=== PATIENT | female | born 1940 | race Caucasian/White ===

== ENCOUNTER → 2017-03-02 | Outpatient (CLI) | payer MEDICARE ==
--- NOTE | 2017-03-03 14:26 | PE ---
EXAMINATION TYPE: PET CT fusion skull to thigh DATE OF EXAM: 03/02/2017 CLINICAL HISTORY: 76 year-old female multiple lung nodules, solitary pulmonary nodule, initial stagin g TECHNIQUE: Following the intravenous administration of 15.27 mCi of F-18 FDG, whole body images are performed from the skull base to the midthigh. Images are reviewed on the computer in the coronal, axial, and sagittal planes. Reconstructed rotating images are created on independent workstation and reviewed on the computer. A localization and attenuation correction CT is performed in conjunction with the PET scan. Glucose level: 162 mg/dL CTDI: 4.72 mGy DLP: 364.65 mGy-cm COMPARISON: PET CT 02/18/[address] 07/17/2013 FINDINGS: PET: Couple tiny nonenlarged, 4 mm lymph nodes just deep to the right parotid tail, axial image 23. This s hows mild increased FDG uptake similar to 02/18/2016. Maximal SUV 2.6 versus 2.5, previously. There is a nonspecific 9 mm groundglass nodule that shows trace FDG uptake in the right upper lobe, a xial image 59, max SUV 1.1 which is new from 2016. A couple new areas of tree-in-bud opacity in the peripheral right upper lobe, axial image 62 and 65 s how no significant FDG uptake and are most compatible with an inflammatory etiology. 9 mm groundglass nodule superior segment right lower lobe was present in 2016 but is new from 2013. T his shows no significant hypermetabolism. The irregular focal opacity in the right middle lobe now measures 2.6 x 1.3 cm versus 1.7 x 1.1 cm in 2016 and 1.6 x 0.7 cm in 2013. Maximal SUV 2.2 versus 2.5, previously. Otherwise, physiologic FDG uptake within the abdomen and pelvis. ATTENUATION CORRECTION CT: Paranasal sinuses and mastoid air cells are clear. Prominent atherosclerotic calcifications at the ca rotid bifurcations. No cervical lymphadenopathy by size criteria. Heart is upper limits of normal in size without pericardial effusion. Coronary vessel calcifications are present and are a marker for coronary artery disease. Aorta is normal caliber with moderate at t he aortic arch calcifications and conventional arch vessel branching anatomy. A few nonenlarged medi astinal lymph nodes are present. No thoracic lymphadenopathy by CT size criteria. Stranding areas of atelectasis/scarring are present in the lungs. Mild centrilobular emphysema. Gallbladder hydropic measuring 4.9 cm wide. No surrounding inflammatory change. Findings likely relat ing to fasting state. Moderate atherosclerotic calcifications within the abdominal aorta and iliac ar teries. No aneurysm. No mesenteric or retroperitoneal lymphadenopathy. No dilated small bowel, free f luid, or free air. Scattered hhgp-ty-kzarsmaf stool. There is sigmoid diverticulosis without evidence for acute diverticulitis. There is a small bowel containing moderate-sized umbilical hernia. Small bowel extends to closely octavio ose the skin surface. No obstructive changes. Artifact from the patient's right hip replacement limits visualization of the pelvis. Bladder is urin e distended. Uterus is present. Both ovaries are visualized. Bones: Degenerative changes at the left hip. Right hip total arthroplasty. Degenerative changes lower lumbar spine. Endplate spondylosis mid to lower thoracic spine. Cervical spondylosis. End-stage deg enerative change of the right shoulder and mild to moderate at the left shoulder. IMPRESSION: 1. The irregular right middle lobe focal opacity in question shows very gradual enlargement from 2014 . It currently measures 2.6 x 1.3 cm versus 1.6 x 0.7 cm back in 2014. There is similar associated mi ld uptake (max SUV 2.2) as compared to the 2016 PET. Given the gradual enlargement, annual surveillan ce is recommended. Findings may represent an area of adenomatous hyperplasia which can serve as a pre cursor to lung cancer. Indolent neoplasm such as low-grade adenocarcinoma is a less likely possibilit y at this time. 2. Two additional 9 mm groundglass nodules on the right should also be reassessed at follow-up. One i s new from 2016 but both are new from 2014. 3. A small 4 mm right parotid space lymph node has mild uptake and is unchanged from 2016, likely chr onic postinflammatory etiology. 4. Incidental: COPD with mild emphysema, sigmoid diverticulosis, and a small to moderate sized umbili lokesh hernia containing a small bowel loop which extends nearly to the skin surface.
== END | disposition home or self-care (01) ==
LOC: RADPETMAIN 11:20
PROVIDERS: ATTEND Internal Medicine Sleep Medicine
DX: J43.9 Emphysema, unspecified (principal); R91.8 Other nonspecific abnormal finding of lung field
CPT/HCPCS: 78815; A9552

== ENCOUNTER → 2019-04-22 | Outpatient (CLI) | payer MEDICARE ==
--- NOTE | 2019-04-22 15:31 | CT ---
EXAMINATION TYPE: CT chest abdomen wo con DATE OF EXAM: 04/22/2019 COMPARISON: Outside chest CT February 11, 2018. Most recent PET/CT March 02, 2017 HISTORY: History of lung ca. Prior in pacs. Scanned by MA and [facility] CT DLP: 945.90 mGycm. Automated Exposure Control for Dose Reduction was Utilized. TECHNIQUE: CT scan of the thorax and abdomen is performed without oral or IV contrast. FINDINGS: LUNGS: Background moderate underlying emphysematous change redemonstrated. There is bibasilar atelect asis and/or consolidation. There is more suspicious right midlung spiculated area or mass measuring 3 .0 x 3.0 cm-image 28. There is additional areas of suspicious spiculated consolidation and probable n odularity lateral right upper lobe near axial image 14, focal nodule measuring 1.1 x 0.8 cm axial nash ge 13 is noted. MEDIASTINUM: There are no definitive greater than 1 cm hilar or mediastinal lymph nodes. Lack of IV c ontrast is noted to lowers sensitivity particularly for hilar adenopathy. No pericardial effusion i s seen. Cardiomegaly with fairly severe three-vessel coronary artery calcification and/or stents is redemonstrated. OTHER: Exaggerated thoracic kyphosis. LIVER/GB: No significant abnormality is appreciated. PANCREAS: No significant abnormality is seen. SPLEEN: No significant abnormality is seen. ADRENALS: No significant abnormality is seen. KIDNEYS: No significant abnormality is seen. BOWEL: Diverticula visualized portion of left and sigmoid colon. Occasional diverticula in the transv erse colon. No CT evidence for acute diverticulitis LYMPH NODES: No greater than 1cm abdominal lymph nodes are appreciated. OSSEOUS STRUCTURES: No significant abnormality is seen. OTHER: Emltggls-ll-bgphir calcified plaque of the aorta extends into the iliac branch vessels. IMPRESSION: Neoplastic progression thought present from prior comparison studies with multifocal righ t lung involvement favored. No new abdominal metastatic disease. Outside reports are not available f or direct comparison.
== END | disposition home or self-care (01) ==
LOC: RADCTMAIN 13:00
PROVIDERS: ATTEND Radiology Radiation Oncology
DX: C34.11 Malignant neoplasm of upper lobe, right bronchus or lung (principal)
CPT/HCPCS: 71250; 74150

== ENCOUNTER → 2019-09-28 | Outpatient (CLI) | payer MEDICARE ==
[2019-09-28 14:38] LABS: African American GFR (CKD) >90 (>60 ml/min/1.73 sqM); Blood Urea Nitrogen 11 mg/dL (7-17); Non-African American GFR(CKD) >90 (>60 ml/min/1.73 sqM)
--- NOTE | 2019-09-28 15:39 | CT ---
EXAMINATION TYPE: CT chest w con DATE OF EXAM: 09/28/2019 COMPARISON: CT chest April 22, 2019. Outside CT February 11, 2018. Prior PET/CT March 02, 2017 an d older study February 18, 2016. HISTORY: Follow up lung cancer. CT DLP: 425 mGycm. Automated Exposure Control for Dose Reduction was Utilized. TECHNIQUE: CT scan of the thorax is performed following with IV Contrast, patient injected with 100 mL of Isovue 300. FINDINGS: LUNGS: Background moderate emphysematous change redemonstrated. Right infrahilar mass or neoplasm pedro ws interval progression now measuring 6.7 x 4.0 cm axial image 29. There are new and Enlarging bilate ral pulmonary nodules and masses consistent with metastatic disease progression, for reference is 2.1 x 1.9 cm left upper lobe new nodule axial image 20. No pleural effusion or pneumothorax seen bilater ally. Yiae-kz-jxxbwmae posterior bibasilar atelectasis and/or scarring remains present. MEDIASTINUM: There are prominent but subcentimeter AP window along with paracarinal and right hilar l ymph nodes. Coronary artery calcification is present which is noted marked underlying coronary artery disease. Cardiomegaly is redemonstrated.. No pericardial effusion is seen. OTHER: Exaggerated thoracic kyphosis. Uomscnnz-yv-voitsv multilevel spurring in the spine. Moderate t o severe disc space narrowing T10-T11 level. IMPRESSION: Significant neoplastic progression with new and enlarging bilateral pulmonary nodules and masses identified
== END | disposition home or self-care (01) ==
LOC: RADCTMAIN 13:58
PROVIDERS: ATTEND Radiology Radiation Oncology
DX: C34.11 Malignant neoplasm of upper lobe, right bronchus or lung (principal); Z92.3 Personal history of irradiation
CPT/HCPCS: 82565; 84520; 71260; 36415; Q9967

== ENCOUNTER 2019-11-06 08:51 | Day surgery (SDC) | payer MEDICARE ==
[2019-11-06 09:22] VITALS: RESP 16; TEMP 98.1
[2019-11-06] MEDS ORDERED: ALPRAZolam 0.25 MG TAB PO STA (09:30)
[2019-11-06 09:58] LABS: Mean Platelet Volume 6.9; Platelet Count 495 k/uL (150-450)
[2019-11-06 10:05] LABS: Prothrombin Time 10.7 sec (9.0-12.0)
[2019-11-06] MEDS ORDERED: HYDROcodone/APAP 5-325MG 1 EACH TAB PO PRN (11:44)
--- NOTE | 2019-11-06 11:44 | P.OP ---
Date of Procedure: 11/06/19 Preoperative Diagnosis: left apical chest wall mass, lung metastases Postoperative Diagnosis: same Procedure(s) Performed: CT-guided core biopsy of left apical chest wall mass Anesthesia: local Surgeon: Lidia Baird Estimated Blood Loss (ml): 1 Pathology: other (5 18G core biopsy specimens sent to pathology) Condition: stable Disposition: observation
[2019-11-06 12:21] VITALS: PULSE 65
[2019-11-06 13:15] VITALS: BP 132/78
--- NOTE | 2019-11-06 17:07 | CT ---
EXAMINATION TYPE: CT biopsy subcut tissue DATE OF EXAM: 11/06/2019 HISTORY: Left rib mass. History of lung cancer. COMPARISON: CT chest 09/28/2019. BRAZER INDUCTION: Dr. Lidia Baird. Informed consent was obtained by Dr. Lidia Baird prior to procedure. Preliminary CT imaging demonstrated a 5.6 x 3.7 cm soft tissue mass destroying the left first rib, as well as numerous redemonstrated pulmonary nodules/masses. The skin overlying a suitable path to the left apical chest wall lesion was localized using CT and the overlying skin was prepped and draped ut ilizing maximal barrier technique. Lidocaine used for local anesthesia. A small skin zaki was made wi th a scalpel. Using CT guidance, access was gained to the lesion with a 18-gauge coaxial core biopsy needle. Core specimen(s) submitted in formalin for histopathology. 5 pass(es) performed in all. All n eedles were removed and sterile bandage was applied. Postprocedure CT imaging demonstrated no evidence of significant hemorrhage or pneumothorax. Patient tolerated procedure well with no immediate complications. Patient is discharged in stable condition. IMPRESSION: Successful CT-guided 18G core biopsy of left apical chest wall mass. Pathology pending.
== END 2019-11-06 13:17 | disposition home or self-care (01) ==
LOC: RADPROMAIN 08:51
PROVIDERS: ATTEND Internal Medicine Hematology & Oncology
DX: C41.3 Malignant neoplasm of ribs, sternum and clavicle (principal); R22.2 Localized swelling, mass and lump, trunk; Z88.6 Allergy status to analgesic agent; Z88.1 Allergy status to other antibiotic agents; Z85.118 Personal history of other malignant neoplasm of bronchus and lung
CPT/HCPCS: 21550; 36415; 77012; 81445; 82947; 85049; 85610; 88305; 88341; 88342; 88360; 88381

== ENCOUNTER 2020-02-21 04:14 | Inpatient (IN) | payer MEDICARE ==
--- NOTE | 2020-02-21 04:53 | ED ---
SOB HPI - General Chief Complaint: Shortness of Breath Stated Complaint: SOB, Weakness Time Seen by Provider: 02/21/20 04:47 Source: EMS Mode of arrival: EMS Limitations: no limitations - History of Present Illness Initial Comments: Tia is an 79-year-old female with stents of medical history most significant for COPD on oxygen 3 L at baseline. Patient presents to the ER today via ambulance for evaluation of shortness breath, fevers, chills, body aches and nausea. Patient reports her sister had COVID that she was exposed. She states she's been feeling sick for 2-3 days was trying to treat herself at home with breathing treatments and increasing or supplemental oxygen but this morning felt like she couldn't catch her breath and was feeling much worse which prompted her come in. Patient denies any chest pain. - Related Data Home Medications Medication Instructions Recorded Confirmed Ascorbic Acid [Vitamin C] 500 mg PO DAILY 02/27/16 11/06/19 Fluticasone/Vilanterol [Breo 1 each IH DAILY 02/27/16 11/06/19 Ellipta 200-25 Mcg INH] Hydrocodone/Acetaminophen [[place] 1 tab PO Q6HR PRN 02/27/16 11/06/19 7.5-325] Ipratropium-Albuterol Nebulize 1 applicate INHALATION QID 02/27/16 11/06/19 [Duoneb 0.5 mg-3 mg/3 ml Soln] Ipratropium/Albuterol Sulfate 2 puff INHALATION BID 02/27/16 11/06/19 [Combivent Respimat Inhaler] Lutein 20 mg PO DAILY 02/27/16 11/06/19 Metoprolol Succinate [Toprol XL] 50 mg PO DAILY 02/27/16 11/06/19 Propafenone [Rythmol] 150 mg PO BID 02/27/16 11/06/19 Repaglinide [Prandin] 1 mg PO 1200,1700 02/27/16 11/06/19 Rivaroxaban [Xarelto] 20 mg PO W/SUPPER 02/27/16 11/06/19 Rosuvastatin Calcium [Crestor] 1.25 mg PO DAILY 02/27/16 11/06/19 Travoprost [Travatan Z 0.004%] 1 drop BOTH EYES HS 02/27/16 11/06/19 dilTIAZem HCL [Diltiazem HCl] 60 mg PO TID 02/27/16 11/06/19 hydrALAZINE HCL 25 mg PO DAILY 02/27/16 11/06/19 Allergies Allergy/AdvReac Type Severity Reaction Status Date / Time cephalexin [From Keflex] Allergy Rash/Hives,itching,rapid Verified 02/21/20 04:22 heartbeat levofloxacin [From Levaquin] Allergy Rash/Hives,itching,rapid Verified 02/21/20 04:22 heartbeat moxifloxacin [From Avelox] Allergy Rash/Hives,itching,rapid Verified 02/21/20 04:22 heartbeat naproxen [From Aleve] Allergy Rash/Hives,itching,rapid Verified 02/21/20 04:22 heartbeat Review of Systems ROS Statement: Those systems with pertinent positive or pertinent negative responses have been documented in the HPI. ROS Other: All systems not noted in ROS Statement are negative. Past Medical History Past Medical History: Atrial Fibrillation, Cancer, COPD, Diabetes Mellitus, Eye Disorder, Hyperlipidemia, Hypertension, Rheumatoid Arthritis (RA), Skin Disorder Additional Past Medical History / Comment(s): psoriasis, investigating lung cancer bone lesion October 2019 History of Any Multi-Drug Resistant Organisms: None Reported Past Surgical History: Joint Replacement Additional Past Surgical History / Comment(s): bilc cataracts, rt hip replacement, partial left knee replacement, total left knee replacement, Past Anesthesia/Blood Transfusion Reactions: No Reported Reaction Past Psychological History: No Psychological Hx Reported Smoking Status: Former smoker Past Alcohol Use History: None Reported Past Drug Use History: None Reported - Past Family History Father Family Medical History: Cancer Additional Family Medical History / Comment(s): pancreatic General Exam - General Exam Comments Initial Comments: Physical Exam GENERAL: likely a well-appearing, moderate respiratory distress HENT: Normocephalic, Atraumatic. EYES: PERRL, EOMI PULMONARY: Tachypnea with coarse lung sounds throughout CARDIOVASCULAR: Tachycardia ABDOMEN: Soft and nontender with normal bowel sounds. SKIN: skin is dry : Deferred NEUROLOGIC: Patient is alert and oriented x3. Moving all extremities spontaneously MUSCULOSKELETAL: Normal extremities with adequate strength and full range of motion. No lower extremity swelling or edema. No calf tenderness. PSYCHIATRIC: Normal psychiatric evaluation. Limitations: no limitations Course Vital Signs 02/21/20 04:16 Temperature 103 F H Pulse Rate 109 H Respiratory 22 Rate Blood Pressure 172/83 O2 Sat by Pulse 93 L Oximetry Medical Decision Making - Medical Decision Making The patient was seen and evaluated history is obtained from the patient History of physical exam are concerning for COVID 19 upon arrival patient is febrile, tachycardic, tachypneic and hypoxic, oxygen saturations were in the 70s at home on 3 L she is 93% on nonrebreather 12 L here Upon initial evaluation patient states that she is DO NOT RESUSCITATE would not want to be intubated or have CPR COVID/Pneumonia workup was ordered Patient was placed on BiPAP with improvement in her work of breathing x-rays x-ray with multifocal pneumonia appears unchanged from earlier this year Labs consistent with COVID 19 Patient will be admitted for hypoxia secondary to multifocal pneumonia and pollo gil COVID 19 Infectious diseases consult the due to patient's multiple ALLERGIES - Lab Data Result diagrams: 02/21/20 05:07 02/21/20 05:07 Lab Results 02/21/20 02/21/20 02/21/20 Range/Units 05:07 05:07 05:07 WBC 19.5 H (3.8-10.6) k/uL RBC 5.36 (3.80-5.40) m/uL Hgb 12.8 (11.4-16.0) gm/dL Hct 40.2 (34.0-46.0) % MCV 75.0 L D (80.0-100.0) fL MCH 23.8 L (25.0-35.0) pg MCHC 31.8 (31.0-37.0) g/dL RDW 16.5 H (11.5-15.5) % Plt Count 448 (150-450) k/uL MPV 6.5 Neutrophils % 93 % Lymphocytes % 4 % Monocytes % 3 % Eosinophils % 0 % Basophils % 0 % Neutrophils # 18.1 H (1.3-7.7) k/uL Lymphocytes # 0.7 L (1.0-4.8) k/uL Monocytes # 0.6 (0-1.0) k/uL Eosinophils # 0.1 (0-0.7) k/uL Basophils # 0.0 (0-0.2) k/uL Hypochromasia Slight Anisocytosis Slight Microcytosis Slight PT 11.1 (9.0-12.0) sec INR 1.1 (<1.2) APTT 25.7 (22.0-30.0) sec D-Dimer 0.62 H (<0.60) mg/L FEU Sodium 125 L (137-145) mmol/L Potassium 4.4 (3.5-5.1) mmol/L Chloride 89 L (98-107) mmol/L Carbon Dioxide 26 (22-30) mmol/L Anion Gap 10 mmol/L BUN 14 (7-17) mg/dL Creatinine 0.55 (0.52-1.04) mg/dL Est GFR (CKD-EPI)AfAm >90 (>60 ml/min/1.73 sqM) Est GFR (CKD-EPI)NonAf 89 (>60 ml/min/1.73 sqM) Glucose 182 H (74-99) mg/dL Plasma Lactic Acid Cristofer (0.7-2.0) mmol/L Calcium 9.0 (8.4-10.2) mg/dL Magnesium 1.8 (1.6-2.3) mg/dL Total Bilirubin 0.7 (0.2-1.3) mg/dL AST 23 (14-36) U/L ALT 13 (4-34) U/L Alkaline Phosphatase 94 (38-126) U/L Lactate Dehydrogenase 638 H (313-618) U/L C-Reactive Protein 255.1 H (<10.0) mg/L Total Protein 6.5 (6.3-8.2) g/dL Albumin 3.7 (3.5-5.0) g/dL 02/21/20 Range/Units 05:07 WBC (3.8-10.6) k/uL RBC (3.80-5.40) m/uL Hgb (11.4-16.0) gm/dL Hct (34.0-46.0) % MCV (80.0-100.0) fL MCH (25.0-35.0) pg MCHC (31.0-37.0) g/dL RDW (11.5-15.5) % Plt Count (150-450) k/uL MPV Neutrophils % % Lymphocytes % % Monocytes % % Eosinophils % % Basophils % % Neutrophils # (1.3-7.7) k/uL Lymphocytes # (1.0-4.8) k/uL Monocytes # (0-1.0) k/uL Eosinophils # (0-0.7) k/uL Basophils # (0-0.2) k/uL Hypochromasia Anisocytosis Microcytosis PT (9.0-12.0) sec INR (<1.2) APTT (22.0-30.0) sec D-Dimer (<0.60) mg/L FEU Sodium (137-145) mmol/L Potassium (3.5-5.1) mmol/L Chloride (98-107) mmol/L Carbon Dioxide (22-30) mmol/L Anion Gap mmol/L BUN (7-17) mg/dL Creatinine (0.52-1.04) mg/dL Est GFR (CKD-EPI)AfAm (>60 ml/min/1.73 sqM) Est GFR (CKD-EPI)NonAf (>60 ml/min/1.73 sqM) Glucose (74-99) mg/dL Plasma Lactic Acid Cristofer 1.5 (0.7-2.0) mmol/L Calcium (8.4-10.2) mg/dL Magnesium (1.6-2.3) mg/dL Total Bilirubin (0.2-1.3) mg/dL AST (14-36) U/L ALT (4-34) U/L Alkaline Phosphatase (38-126) U/L Lactate Dehydrogenase (313-618) U/L C-Reactive Protein (<10.0) mg/L Total Protein (6.3-8.2) g/dL Albumin (3.5-5.0) g/dL - EKG Data -: EKG Interpreted by Me EKG Comments: CT was obtained due to tachycardia and shortness of breath EKG obtained at 4:22 AM rate is 109 rhythm is narrow complex regular tachycardic with P-wave for each QRS consistent with sinus tachycardia with PVCs. There is significant movement respiratory artifact were no obvious ST elevations or depressions no evidence of acute ischemia or infarction. Disposition Clinical Impression: Multifocal pneumonia, Hypoxic, Sepsis, Exposure to COVID-19 virus Disposition: ADMITTED IP TO THIS HOSP Condition: Serious Referrals: Angela Swanson MD [Primary Care Provider] - 1-2 days
[2020-02-21] MEDS ORDERED: ACETAMINOPHEN TAB 325 MG TAB PO STA (05:32)
--- NOTE | 2020-02-21 05:36 | XR ---
EXAM: XR Chest, 1 View CLINICAL HISTORY: ITS.REASON XR Reason: Suspected COVID-19 pneumonia TECHNIQUE: Frontal view of the chest. COMPARISON: Chest CT scan September 28, 2019 FINDINGS/IMPRESSION: Airspace opacity within the right mid and lower lung mo and to a lesser extent left lower lung field, suspicious for infiltrate. These areas of consolidation were present on CT scan from September 28, 2019. In addition, there were multiple, large pulmonary nodules present on that study which are not definitively visualized on the current study. Consider correlation with repeat chest CT scan if clinically indicated. Underlying emphysema. Cardiomegaly. Calcified aorta. Degenerative changes of the spine and shoulders. Diffuse osseous demineralization.
[2020-02-21 05:39] LABS: Anisocytosis Slight; Basophils % (A) 0 %; Eosinophils # (A) 0.1 k/uL (0-0.7); Eosinophils % (A) 0 %; HCT 40.2 % (34.0-46.0); HGB 12.8 gm/dL (11.4-16.0); Hypochromasia Slight; Lymphocytes # (A) 0.7 k/uL (1.0-4.8); Lymphocytes % (A) 4 %; MCH 23.8 pg (25.0-35.0); MCHC 31.8 g/dL (31.0-37.0); Mean Platelet Volume 6.5; Microcytosis Slight; Monocytes # (A) 0.6 k/uL (0-1.0); Monocytes % (A) 3 %; Neutrophils # (A) 18.1 k/uL (1.3-7.7); Neutrophils % (A) 93 %; Platelet Count 448 k/uL (150-450); RBC 5.36 m/uL (3.80-5.40); RDW 16.5 % (11.5-15.5); WBC 19.5 k/uL (3.8-10.6)
[2020-02-21] MEDS ORDERED: ONDANSETRON 4 MG/2 ML VIAL IVP STA (05:39)
[2020-02-21 05:54] LABS: ALT 13 U/L (4-34); AST 23 U/L (14-36); African American GFR (CKD) >90 (>60 ml/min/1.73 sqM); Albumin 3.7 g/dL (3.5-5.0); Alkaline Phosphatase 94 U/L (38-126); Anion Gap 10 mmol/L; Blood Urea Nitrogen 14 mg/dL (7-17); Carbon Dioxide 26 mmol/L (22-30); Chloride 89 mmol/L (98-107); Glucose 182 mg/dL (74-99); LDH 638 U/L (313-618); Magnesium 1.8 mg/dL (1.6-2.3); Non-African American GFR(CKD) 89 (>60 ml/min/1.73 sqM); Potassium 4.4 mmol/L (3.5-5.1); Sodium 125 mmol/L (137-145); Total Bilirubin 0.7 mg/dL (0.2-1.3); Total Protein 6.5 g/dL (6.3-8.2)
[2020-02-21 05:55] LABS: INR 1.1 (<1.2); Partial Thromboplastin Time 25.7 sec (22.0-30.0); Prothrombin Time 11.1 sec (9.0-12.0)
[2020-02-21 06:13] LABS: C Reactive Protein 255.1 mg/L (<10.0)
[2020-02-21 06:16] LABS: D-Dimer 0.62 mg/L FEU (<0.60)
[2020-02-21] MEDS ORDERED: NALOXONE 0.4 MG/ML 1 ML VIAL IV PRN (06:29)
[2020-02-21] MEDS ORDERED: ONDANSETRON 4 MG/2 ML VIAL IVP PRN (06:29)
[2020-02-21] MEDS ORDERED: IPRATROPIUM-ALBUTEROL 3 ML NEB INHALATION PRN (06:34)
[2020-02-21] MEDS ORDERED: PNEUMONIA PROTOCOL UTILIZED 1 EACH MISC PO PRN (06:34)
[2020-02-21] MEDS ORDERED: PIPERACILLIN-TAZOBACTAM 3.375 GM in SODIUM CHLORIDE 0.9% 100 ML IVPB SCH (08:00)
[2020-02-21] MEDS ORDERED: DEXAMETHASONE SOD PHOSPHATE 10 MG/ML 1 ML VIAL IV SCH (09:00)
[2020-02-21] MEDS ORDERED: ENOXAPARIN 30 MG/0.3 ML SYRINGE SQ SCH (09:00)
[2020-02-21] MEDS: ACETAMINOPHEN TAB 325 MG TAB PO PRN ×2 (09:14→16:05)
[2020-02-21 10:08] LABS: Ferritin 318.5 ng/mL (10.0-291.0)
--- NOTE | 2020-02-21 10:08 | P.CNPUL ---
History of Present Illness Consult date: 02/21/20 Requesting physician: Keaton Sanchez Reason for consult: dyspnea, abnormal CXR/CT Chief complaint: Shortness of breath, cough, congestion History of present illness: This is a very pleasant 79-year-old female patient who follows with Dr. Swanson as her primary care provider. She has a history of atrial fibrillation, chronic obstructive pulmonary disease, diabetes mellitus, hyperlipidemia, hypertension, rheumatoid arthritis. She also has a history of lung cancer and follows in our office with Dr. Gallagher. She is known to have a right lung cancer. Initial navigational bronchoscopies were negative. Initial PET scans were negative. Follow-up PET scan in February 2017 did reveal considerable increase in size in one of the lesions and a mild increase in the other lesions with significant up take. He did receive radiotherapy at that time. She follows with Dr. Cid. 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 She had been receiving immunotherapy but stopped it a few weeks ago based on how was making her feel. She presented here to the emergency past 20 5:00 this morning with complaints of increasing shortness of breath, fever chills body aches and nausea. She states she had been with her sister who had been exposed to CoVID 19. She is seen this morning in the emergency room. She is awake and alert. She is quite dyspneic even on conversation. She was initially on BiPAP 12/6 and 60% FiO2 to maintain O2 saturations in the 90s. Her BiPAP is currently off she is on 15 L nonrebreather mask. Chest x-ray reveals airspace opacity within the right mid and lower lung mo and to a lesser extent the left lower lung field suspicious for infiltrate. Her Covid screen is pending. Her temperature is 101.6. She is tachycardic. Tachypneic. White count 19.5. Hemoglobin 12.8. Lymphocytes 0.7. D-dimer 0.62. Sodium 125. Potassium 4.4. Creatinine 0.55. LDH 638. C-reactive protein 255. Influenza screen negative. She has received Zosyn, Zofran, acetaminophen. She's been initiated on Lovenox, Decadron, and azithromycin. Review of Systems REVIEW OF SYSTEMS: CONSTITUTIONAL: Negative for generalized weakness, fatigue, fever. Denies any recent significant weight loss or weight gain. EYES: Denies change in vision. EARS, NOSE, MOUTH, THROAT: Denies headaches, denies sore throat. CARDIOVASCULAR: Denies chest pain, palpitations or syncopal episodes. RESPIRATORY: Positive for shortness of breath, cough, congestion no hemoptysis. GASTROINTESTINAL: Denies change in appetite, denies abdominal pain GENITOURINARY: Denies hematuria, denies infections. MUSKULOSKELETAL: Denies pain, denies swelling. INTEGUMENTARY: Denies rash, denies eczema. NEUROLOGICAL: Denies recent memory loss, no recent seizure activity. PSYCHIATRIC: Denies anxiety, denies depression. HEMATOLOGIC/LYMPHATIC: Denies anemia, denies enlarged lymph nodes. Past Medical History Past Medical History: Atrial Fibrillation, Cancer, COPD, Diabetes Mellitus, Eye Disorder, Hyperlipidemia, Hypertension, Rheumatoid Arthritis (RA), Skin Disorder Additional Past Medical History / Comment(s): psoriasis, investigating lung cancer bone lesion October 2019 History of Any Multi-Drug Resistant Organisms: None Reported Past Surgical History: Joint Replacement Additional Past Surgical History / Comment(s): bilc cataracts, rt hip replacement, partial left knee replacement, total left knee replacement, Past Anesthesia/Blood Transfusion Reactions: No Reported Reaction Past Psychological History: No Psychological Hx Reported Smoking Status: Former smoker Past Alcohol Use History: None Reported Past Drug Use History: None Reported - Past Family History Father Family Medical History: Cancer Additional Family Medical History / Comment(s): pancreatic Medications and Allergies Home Medications Medication Instructions Recorded Confirmed Type Ascorbic Acid [Vitamin C] 500 mg PO DAILY 02/27/16 02/21/20 History Fluticasone/Vilanterol [Breo 1 puff INHALATION RT-DAILY 02/27/16 02/21/20 History Ellipta 200-25 Mcg INH] Hydrocodone/Acetaminophen [[place] 1 tab PO Q4H PRN 02/27/16 02/21/20 History 7.5-325] Ipratropium-Albuterol Nebulize 3 ml INHALATION RT-QID 02/27/16 02/21/20 History [Duoneb 0.5 mg-3 mg/3 ml Soln] Ipratropium/Albuterol Sulfate 2 puff INHALATION RT-BID 02/27/16 02/21/20 History [Combivent Respimat Inhaler] Lutein 20 mg PO DAILY 02/27/16 02/21/20 History Metoprolol Succinate [Toprol XL] 50 mg PO DAILY 02/27/16 02/21/20 History Rivaroxaban [Xarelto] 20 mg PO W/SUPPER 02/27/16 02/21/20 History Rosuvastatin Calcium [Crestor] 5 mg PO DAILY 02/27/16 02/21/20 History dilTIAZem HCL [Diltiazem HCl] 60 mg PO TID 02/27/16 02/21/20 History hydrALAZINE HCL 25 mg PO DAILY 02/27/16 02/21/20 History Docusate [Colace] 100 mg PO BID 02/21/20 02/21/20 History Flecainide [Tambocor] 50 mg PO Q12HR 02/21/20 02/21/20 History Latanoprost [Xalatan 0.005%] 1 drop BOTH EYES HS 02/21/20 02/21/20 History Repaglinide [Prandin] 1 mg PO BID 02/21/20 02/21/20 History Ubidecarenone [Co Q-10] 200 mg PO DAILY 02/21/20 02/21/20 History predniSONE See Taper PO DAILY 02/21/20 02/21/20 History Allergies Allergy/AdvReac Type Severity Reaction Status Date / Time cephalexin [From Keflex] Allergy Rash/Hives,itching,rapid Verified 02/21/20 07:30 heartbeat levofloxacin [From Levaquin] Allergy Rash/Hives,itching,rapid Verified 02/21/20 07:30 heartbeat moxifloxacin [From Avelox] Allergy Rash/Hives,itching,rapid Verified 02/21/20 07:30 heartbeat naproxen [From Aleve] Allergy Rash/Hives,itching,rapid Verified 02/21/20 07:30 heartbeat Physical Exam Vitals: Vital Signs Temp Pulse Resp BP Pulse Ox 02/21/20 09:17 101.6 F H 112 H 22 137/81 90 L 02/21/20 07:15 99.4 F 112 H 24 153/82 94 L 02/21/20 04:16 103 F H 109 H 22 172/83 93 L Intake and Output 02/20/20 02/21/20 02/21/20 22:59 06:59 14:59 Other: Weight 77.111 kg GENERAL EXAM: Alert, very pleasant 79-year-old female patient, on 15 L nonrebreather mask, dyspneic on conversation. HEAD: Normocephalic. EYES: Normal reaction of pupils, equal size. NOSE: Clear with pink turbinates. THROAT: No erythema or exudates. NECK: No masses, no JVD. CHEST: No chest wall deformity. LUNGS: Equal air entry with bilateral scattered rhonchi CVS: S1 and S2 normal with no audible murmur, regular rhythm. ABDOMEN: No hepatosplenomegaly, normal bowel sounds, no guarding or rigidity. SPINE: No scoliosis or deformity SKIN: No rashes CENTRAL NERVOUS SYSTEM: No focal deficits, tone is normal in all 4 extremities. EXTREMITIES: There is no peripheral edema. No clubbing, no cyanosis. Peripheral pulses are intact. Results - Laboratory Findings CBC and BMP: 02/21/20 05:07 02/21/20 05:07 PT/INR, D-dimer PT 11.1 sec (9.0-12.0) 02/21/20 05:07 INR 1.1 (<1.2) 02/21/20 05:07 D-Dimer 0.62 mg/L FEU (<0.60) H 02/21/20 05:07 Abnormal lab findings: Abnormal Labs 02/21/20 02/21/20 02/21/20 05:07 05:07 05:07 WBC 19.5 H MCV 75.0 L D MCH 23.8 L RDW 16.5 H Neutrophils # 18.1 H Lymphocytes # 0.7 L D-Dimer 0.62 H Sodium 125 L Chloride 89 L Glucose 182 H Lactate Dehydrogenase 638 H C-Reactive Protein 255.1 H - Diagnostic Findings Chest x-ray: image reviewed Assessment and Plan Assessment: 1 Acute hypoxic respiratory failure secondary to bilateral patchy infiltrate, CoVID 19 screen pending 2 Febrile illness secondary to above 3 Elevated inflammatory markers suspect Covid 19 infection 4 History of carcinosarcoma on biopsy of a left apical chest wall mass in October 2019 currently on immunotherapy 5 History of lung cancer with previous radiation therapy 6 Atrial fibrillation anticoagulated with Xarelto, currently in sinus rhythm 7 Hyperlipidemia 8 Hypertension 9 Rheumatoid arthritis 10 Diabetes mellitus 11 Prior tobacco dependence Plan: The patient was seen and evaluated by Dr. Gallagher Chest x-ray and labs reviewed Covid 19 screen pending Procalcitonin pending Continue to alternate 15 L high flow with BiPAP as needed She is a DO NOT RESUSCITATE/DO NOT INTUBATE CODE STATUS Continue Lovenox, continue her Xarelto Continue Decadron Add Pepcid, melatonin, vitamin C, vitamin D, zinc We will continue to follow and make further recommendations based on her clin ical I, the cosigning physician, performed a history & physical examination of the patient. Lungs sounds with bilateral scattered rhonchi. Maintaining good O2 saturations in the 90s on 2 L high flow nasal cannula. I discussed the assessment and plan of care with my nurse practitioner, Rachel Gaviria. I attest to the above consultation as dictated by her. Time with Patient: Greater than 30
[2020-02-21] MEDS ORDERED: ALBUTEROL HFA INHALER INHALATION PRN (10:12)
[2020-02-21] MEDS ORDERED: FAMOTIDINE 20 MG TAB PO SCH (10:15)
[2020-02-21] MEDS: DILTIAZEM ORAL 60 MG TAB PO SCH ×3 (11:15→22:37)
[2020-02-21] MEDS: FLECAINIDE 50 MG TAB PO SCH ×2 (11:15→22:36)
[2020-02-21] MEDS: REPAGLINIDE 1 MG TAB PO SCH ×3 (11:17→18:15)
[2020-02-21] MEDS: hydrALAZINE HCL 25 MG TAB PO SCH (12:29)
[2020-02-21] MEDS: CHOLECALCIFEROL 1,000 UNIT TAB PO SCH (12:29)
[2020-02-21] MEDS: ATORVASTATIN 10 MG TAB PO SCH (12:29)
[2020-02-21] MEDS: ASCORBIC ACID 500 MG TAB PO SCH (12:29)
[2020-02-21] MEDS: METOPROLOL SUCCINATE (ER) 50 MG TAB.ER.24H PO SCH (12:30)
[2020-02-21] MEDS: ZINC SULFATE 220 MG CAP PO SCH (12:37)
[2020-02-21] MEDS: methylPREDNISolone SOD SUCCI 40 MG/ML 1 ML VIAL IV SCH (16:05)
[2020-02-21] MEDS: FAMOTIDINE 20 MG TAB PO SCH ×2 (16:06→22:36)
[2020-02-21] MEDS ORDERED: RIVAROXABAN 20 MG TAB PO SCH (17:30)
[2020-02-21] MEDS: RIVAROXABAN 20 MG TAB PO SCH (18:30)
--- NOTE | 2020-02-21 18:57 | P.HPIM ---
History of Present Illness H&P Date: 02/21/20 Chief Complaint: shortness of breath History of presenting complaint: This is a pleasant [address] Mel Swanson. Chronic stable medical conditions include atrial fibrillation, COPD, diabetes, hyperlipidemia, hypertension, rheumatoid arthritis, psoriatic. Patient has a diagnosis of lung cancer metastatic [address] Mack. Patient had declined chemotherapy. Nelida nt's currently on Kaytruda. Did receive radiation treatment. Patient lives alone. She is on home oxygen 3 L. Patient now presents with fever for one day. Increase shortness of breath. Wheezing. Patient is a neck smoker. Patient denies being exposed to any COVID person. Decreased appetite. Slight cough. Review of systems: GEN.: Weak diet febrile EYES: None HEENT: None NECK: None RESPIRATORY: Shortness of breath cough wheezing CARDIOVASCULAR: None GASTROINTESTINAL: None GENITOURINARY: None MUSCULOSKELETAL: Joint pains LYMPHATICS: None HEMATOLOGICAL: None PSYCHIATRY: None NEUROLOGICAL: Uses a walker Past medical history to include: Atrial fibrillation, COPD, lung cancer metastatic this, diabetes, hyperlipidemia, hypertension, rheumatoid arthritis, psoriasis Social history: Patient smoked 1-1-1/2 packs a day for 40 years stopped about 14 years ago. No alcohol. Lives alone. Physical examination: VITAL SIGNS: 103, 109, 22, 1 53 x 22, 94% on a BiPAP GENERAL: BMI 31.1, [place]pper in bed, short of breath. EYES: Pupils equal. Conjunctiva normal. HEENT: External appearance of nose and ears normal, oral cavity grossly normal. NECK: JVD not raised; masses not palpable. HEART: First and second heart sounds are normal; no edema. LUNGS: Respiratory rate increased, decreased breath sounds on expiration and wheezing. ABDOMEN: Soft, nontender, liver spleen not palpable, no masses palpable. PSYCH: Alert and oriented x3; mood and affect slightly normall. NEUROLOGICAL: Cranial nerves grossly intact; no facial asymmetry, power and sensation grossly intact. LYMPHATICS: No lymph nodes palpable in the axilla and neck INVESTIGATIONS, reviewed in the clinical context: White count 19.5 hemoglobin 12.8 platelets 448 increased neutrophils, decreased lymphocytes sodium 125 potassium 4.4 creatinine 0.55 CRP 255.1 progression calcitonin 0.12 Influenza type A type B both negative EKG tracing personally reviewed by me-sinus rhythm, poor baseline Chest x-ray film personally reviewed by me-scattered infiltrates. Large pulmonary nodules reported. Assessment: -Bilateral pneumonia, suspect gram-negative orgasm, rule out COVID 19, POA -Sepsis secondary to pneumonia -Acute hypoxic respiratory failure on BiPAP -Paroxysmal atrial fibrillation currently in sinus rhythm, chronically on Xarelto -Lung cancer with bony metastatic this, status post radiation treatment. Claire turk is on [place]. Has declined chemotherapy. -Acute COPD exacerbation in an ex-smoker -Diabetes mellitus type 2 -Hyperlipidemia -Essential hypertension -Rheumatoid arthritis -Psoriasis Plan: COVID 19 PCR is pending. Patient started IV ceftriaxone and Zithromax. Patient be put on IV Solu-Medrol. Add bronchodilators. Home medications to continue. Patient to continue on Xarelto. Care was discussed with the patient questions answered. Dr. Gallagher from pulmonary consulted. Using a BiPAP. Past Medical History Past Medical History: Atrial Fibrillation, Cancer, COPD, Diabetes Mellitus, Eye Disorder, Hyperlipidemia, Hypertension, Rheumatoid Arthritis (RA), Skin Disorder Additional Past Medical History / Comment(s): psoriasis, investigating lung cancer bone lesion October 2019 History of Any Multi-Drug Resistant Organisms: None Reported Past Surgical History: Joint Replacement Additional Past Surgical History / Comment(s): bilc cataracts, rt hip re placement, partial left knee replacement, total left knee replacement, Past Anesthesia/Blood Transfusion Reactions: No Reported Reaction Past Psychological History: No Psychological Hx Reported Smoking Status: Former smoker Past Alcohol Use History: None Reported Past Drug Use History: None Reported - Past Family History Father Family Medical History: Cancer Additional Family Medical History / Comment(s): pancreatic Medications and Allergies Home Medications Medication Instructions Recorded Confirmed Type Ascorbic Acid [Vitamin C] 500 mg PO DAILY 02/27/16 02/21/20 History Fluticasone/Vilanterol [Breo 1 puff INHALATION RT-DAILY 02/27/16 02/21/20 History Ellipta 200-25 Mcg INH] Hydrocodone/Acetaminophen [[place] 1 tab PO Q4H PRN 02/27/16 02/21/20 History 7.5-325] Ipratropium-Albuterol Nebulize 3 ml INHALATION RT-QID 02/27/16 02/21/20 History [Duoneb 0.5 mg-3 mg/3 ml Soln] Ipratropium/Albuterol Sulfate 2 puff INHALATION RT-BID 02/27/16 02/21/20 History [Combivent Respimat Inhaler] Lutein 20 mg PO DAILY 02/27/16 02/21/20 History Metoprolol Succinate [Toprol XL] 50 mg PO DAILY 02/27/16 02/21/20 History Rivaroxaban [Xarelto] 20 mg PO W/SUPPER 02/27/16 02/21/20 History Rosuvastatin Calcium [Crestor] 5 mg PO DAILY 02/27/16 02/21/20 History dilTIAZem HCL [Diltiazem HCl] 60 mg PO TID 02/27/16 02/21/20 History hydrALAZINE HCL 25 mg PO DAILY 02/27/16 02/21/20 History Docusate [Colace] 100 mg PO BID 02/21/20 02/21/20 History Flecainide [Tambocor] 50 mg PO Q12HR 02/21/20 02/21/20 History Latanoprost [Xalatan 0.005%] 1 drop BOTH EYES HS 02/21/20 02/21/20 History Repaglinide [Prandin] 1 mg PO BID 02/21/20 02/21/20 History Ubidecarenone [Co Q-10] 200 mg PO DAILY 02/21/20 02/21/20 History predniSONE See Taper PO DAILY 02/21/20 02/21/20 History Allergies Allergy/AdvReac Type Severity Reaction Status Date / Time cephalexin [From Keflex] Allergy Rash/Hives,itching,rapid Verified 02/21/20 07:30 heartbeat levofloxacin [From Levaquin] Allergy Rash/Hives,itching,rapid Verified 02/21/20 07:30 heartbeat moxifloxacin [From Avelox] Allergy Rash/Hives,itching,rapid Verified 02/21/20 07:30 heartbeat naproxen [From Aleve] Allergy Rash/Hives,itching,rapid Verified 02/21/20 07:30 heartbeat Physical Exam Vitals: Vital Signs Temp Pulse Resp BP Pulse Ox 02/21/20 09:50 114 H 25 H 123/70 92 L 02/21/20 09:17 101.6 F H 112 H 22 137/81 90 L 02/21/20 07:15 99.4 F 112 H 24 153/82 94 L 02/21/20 04:16 103 F H 109 H 22 172/83 93 L Intake and Output 02/20/20 02/21/20 02/21/20 22:59 06:59 14:59 Other: Weight 77.111 kg Results CBC & Chem 7: 02/21/20 05:07 02/21/20 05:07 Labs: Abnormal Lab Results - Last 24 Hours (Table) 02/21/20 02/21/20 02/21/20 Range/Units 05:07 05:07 05:07 WBC 19.5 H (3.8-10.6) k/uL MCV 75.0 L D (80.0-100.0) fL MCH 23.8 L (25.0-35.0) pg RDW 16.5 H (11.5-15.5) % Neutrophils # 18.1 H (1.3-7.7) k/uL Lymphocytes # 0.7 L (1.0-4.8) k/uL D-Dimer 0.62 H (<0.60) mg/L FEU Sodium 125 L (137-145) mmol/L Chloride 89 L (98-107) mmol/L Glucose 182 H (74-99) mg/dL Ferritin 318.5 H (10.0-291.0) ng/mL Lactate Dehydrogenase 638 H (313-618) U/L C-Reactive Protein 255.1 H (<10.0) mg/L Procalcitonin (0.02-0.09) ng/mL 02/21/20 Range/Units 05:07 WBC (3.8-10.6) k/uL MCV (80.0-100.0) fL MCH (25.0-35.0) pg RDW (11.5-15.5) % Neutrophils # (1.3-7.7) k/uL Lymphocytes # (1.0-4.8) k/uL D-Dimer (<0.60) mg/L FEU Sodium (137-145) mmol/L Chloride (98-107) mmol/L Glucose (74-99) mg/dL Ferritin (10.0-291.0) ng/mL Lactate Dehydrogenase (313-618) U/L C-Reactive Protein (<10.0) mg/L Procalcitonin 0.12 H (0.02-0.09) ng/mL
[2020-02-21] MEDS: SYMBICORT 160-4.5 MCG INHALER INHALATION SCH (20:40)
[2020-02-21] MEDS ORDERED: CEFEPIME 1 GM in SODIUM CHLORIDE 0.9% 50 ML IVPB SCH (21:00)
[2020-02-21 21:12] LABS: Glucose,Whole Blood 261 mg/dL (75-99)
[2020-02-21] MEDS: DOCUSATE 100 MG CAP PO SCH (22:36)
[2020-02-21] MEDS: MELATONIN 5 MG TABLET PO SCH (22:37)
[2020-02-21] MEDS: INSULIN ASPART (NovoLOG) 100 UNIT/ML VIAL SQ SCH (22:37)
[2020-02-21] MEDS: LATANOPROST 0.005% OPHTH DROPS 2.5 ML BTL BOTH EYES SCH (22:45)
[2020-02-22] MEDS: PIPERACILLIN-TAZOBACTAM 3.375 GM in SODIUM CHLORIDE 0.9% 100 ML IVPB SCH ×3 (00:22→17:21)
[2020-02-22] MEDS: methylPREDNISolone SOD SUCCI 40 MG/ML 1 ML VIAL IV SCH ×2 (00:22→08:33)
[2020-02-22] MEDS: HYDROcodone/APAP 7.5-325MG 1 EACH TAB PO PRN ×2 (00:33→06:33)
[2020-02-22 06:08] LABS: Glucose,Whole Blood 211 mg/dL (75-99)
[2020-02-22] MEDS: INSULIN ASPART (NovoLOG) 100 UNIT/ML VIAL SQ SCH ×4 (06:32→23:59)
--- NOTE | 2020-02-22 06:32 | CONS ---
CONSULTATION DATE OF SERVICE: 02/21/2020 REASON FOR CONSULTATION: Pneumonia with multiple antibiotic allergies. HISTORY OF PRESENT ILLNESS: The patient is an 79-year-old female with past medical history significant for carcinosarcoma diagnosed with core biopsy of the left rib in October of 2019 for which the patient has been receiving immunotherapy but stopped a few weeks ago with side effects from it. The patient has presented to [facility] ER early this morning for evaluation of increasing shortness of breath, body aches and fever. The patient's symptoms have been going on for the last 2 to 3 days. The patient denies having any headache or symptoms. The patient denies having any chest pain. She is complaining of shortness of breath on minimal exertion and even at rest. She also have a cough which is moderate in intensity with occasional sputum production. No hemoptysis. No pleuritic chest pain. No nausea, no vomiting. No abdominal pain. No diarrhea. On arrival to the ER, the patient was febrile with temperature 103 degrees Fahrenheit. The patient was not tachycardic. She was hypoxic requiring BiPAP and the patient did have white count 19.5 with a left shift. The patient did have normal creatinine. Liver enzymes are normal. The patient did have elevated CRP as well as procalcitonin. Influenza PCR negative. Ceron PCR is pending. The patient did have a chest x-ray which did show airspace opacity with the right mid and lower lung field and to a lesser extent the left lung field concerning for pneumonia. The patient did receive a dose of Zosyn in the subsequent has been started on Zithromax, cefepime. Infectious Disease was consulted because of her multiple antibiotic allergies. REVIEW OF SYSTEMS: Positive points have been mentioned in HPI. Rest of systems are negative. PAST MEDICAL HISTORY: Atrial fibrillation, lung cancer, COPD, diabetes mellitus, rheumatoid arthritis, hypertension, hyperlipidemia, psoriasis. PAST SURGICAL HISTORY: Bilateral cataract surgery, right hip replacement, partial left knee replacement. SOCIAL HISTORY: Remote history of smoking. No drinking or drug use. FAMILY HISTORY: Father history of pancreatic cancer. ALLERGIES: Allergies to CEPHALEXIN, LEVAQUIN, MOXIFLOXACIN, NAPROXEN. MEDICATIONS: Medications include the patient is currently on zinc sulfate, Xarelto, Zofran, Narcan, Toprol XL, Solu-Medrol, NovoLog, hydralazine, Tambocor, Pepcid, Colace, azithromycin, Lipitor, cefepime and Tylenol. PHYSICAL EXAMINATION: Her blood pressure is 128/64 with a pulse of 72, temperature 98.1, T-max is 103. She is 92% on BiPAP. General description is an elderly female lying in bed in no distress. No tachypnea or accessory muscle of respiration use. HEENT: Examination no pallor or scleral icterus. NECK: Trachea central. No thyromegaly. LUNGS: Unlabored breathing, decreased intense breath sounds. No wheeze. HEART: S1, S2. Regular rate and rhythm. ABDOMEN: Soft, no tenderness. No guarding or rigidity. EXTREMITIES: No edema of feet. SKIN EXAMINATION: No rash or mass palpable. NEUROLOGIC: The patient is awake, alert and oriented x3. Mood and affect normal. LABS: Hemoglobin is 12.8, white count 19.5. BUN of 14, creatinine 0.55. Elevated CRP. DIAGNOSTIC IMPRESSION: 1. Patient admitted to the hospital with pneumonia, possible community-acquired versus gram-negative in this patient who did have history of lung cancer, has been on immunotherapy, recently stopped because of side effects in this patient who did have elevated white count, elevated CRP, high clinical suspicion for bacterial rather than viral pneumonia, though COVID-19 infection not entirely excluded. 2. Patient with multiple antibiotic allergies that will limit the number of antibiotics safe to use. PLAN: 1. We will try to obtain sputum for Gram stain and culture. 2. Adjust antibiotic to Zosyn 3.375 q.8 hours and Zithromax. 3. We will follow on clinical condition and culture to further adjust medication if needed. Thank you for this consultation. Will follow this patient along with you. MMODL / IJN: [id number] /
[2020-02-22] MEDS: REPAGLINIDE 1 MG TAB PO SCH ×2 (06:33→17:23)
[2020-02-22] MEDS: hydrALAZINE HCL 25 MG TAB PO SCH (08:33)
[2020-02-22] MEDS: FAMOTIDINE 20 MG TAB PO SCH ×2 (08:33→20:26)
[2020-02-22] MEDS: METOPROLOL SUCCINATE (ER) 50 MG TAB.ER.24H PO SCH (08:33)
[2020-02-22] MEDS: DILTIAZEM ORAL 60 MG TAB PO SCH ×3 (08:33→20:26)
[2020-02-22] MEDS: FLECAINIDE 50 MG TAB PO SCH ×2 (08:33→20:28)
[2020-02-22] MEDS: DOCUSATE 100 MG CAP PO SCH ×2 (08:33→20:26)
[2020-02-22] MEDS: ATORVASTATIN 10 MG TAB PO SCH (08:33)
[2020-02-22] MEDS: CHOLECALCIFEROL 1,000 UNIT TAB PO SCH (08:33)
[2020-02-22] MEDS: ASCORBIC ACID 500 MG TAB PO SCH (08:34)
[2020-02-22] MEDS: ZINC SULFATE 220 MG CAP PO SCH (08:34)
[2020-02-22] MEDS ORDERED: AZITHROMYCIN 500 MG in SODIUM CHLORIDE 0.9% 250 ML IVPB SCH (09:00)
[2020-02-22] MEDS: SYMBICORT 160-4.5 MCG INHALER INHALATION SCH ×2 (09:28→21:16)
[2020-02-22] MEDS ORDERED: RX INFO: IV CONTRAST WAS GIVEN 1 EACH MISC MISCELLANE PRN (11:24)
[2020-02-22 12:15] LABS: Glucose,Whole Blood 236 mg/dL (75-99)
[2020-02-22] MEDS: methylPREDNISolone SOD SUCCI 125 MG/2 ML VIAL IV SCH ×2 (12:33→17:20)
[2020-02-22 13:26] LABS: Hemoglobin A1C 8.6 % (4.0-6.0)
--- NOTE | 2020-02-22 17:05 | P.CONS ---
History of Present Illness - Reason for Consult Consult date: 02/22/20 Shortness of breath, lung infiltrates. Lung cancer - History of Present Illness This is a 79 yr old female, followed by Dr Cid when was evaluated for leukocytosis initially in 2018, which was felt to be reactive. She was then found to have an enlarging RUL lung nodule,since it was difficult to biopsy it due to her advanced COPD and location and was felt to be suspicious enough,she underwent SBRT to RUL lesion in February/2019. She had a follow up CT scan of chest on 09/28/2019 which revealed significant progression,right infrahilar mass measured 6.7x4.0cm and few enlarging bilateral lung nodules,prominent mediastinal nodes. She was thus was referred back to Dr Cid. 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 On 12/15/2019,she started keytruda. She felt weak and more SOB for 2 days after the first treatment, then back to baseline. She has significant exertional dyspnea,chronic cough,she is O2 dependent. ( 02/09/20-Telehealth visit, phone call only. Pt reports: Saturday morning she did her inhaler, turned around and stepped in her own stool, she had no idea that she had a BM, not a lot of stool, watery with small amt of sollid, stomach cramp occassionally, no blood, mucus, fevers, appetite is ok, no N,V, she does not feel she is dehydrated, she is tolerating fluids. She used 5 imodium yesterday, she took 1 today, no changes, she thinks she has had up to 8 BM in 24 hours. No other c/o.) The patient had [employer] fairly healthy visit on 02/09/20 as noted above. Her symptoms were felt to possibly be due to immunotherapy related colitis. Therefore immunotherapy was discontinued and the patient was started on a steroid taper. The patient states that she has had some increase in cough, as well as whitish expectoration, but about 3 weeks. This appeared to get worse over the past 2-3 days. She also reported a fever at home on the day prior to admission. She therefore came in to the emergency room where chest x-ray showed bilateral lung infiltrates. She was therefore admitted for further management. She is currently on BiPAP. Review of Systems Constitutional: Reports chronic pain, Reports fatigue, Reports weakness Eyes: denies blurred vision, denies pain Ears: deny: decreased hearing, ear discharge, earache, tinnitus Ears, nose, mouth and throat: Denies headache, Denies sore throat Cardiovascular: Reports shortness of breath Respiratory: Reports cough with sputum, Reports dyspnea Gastrointestinal: Reports diarrhea (now resolved), Denies abdominal pain, Denies nausea, Denies vomiting Genitourinary: Denies dysuria, Denies hematuria Menstruation: Reports postmenopausal Musculoskeletal: Reports muscle weakness Integumentary: Denies pruritus, Denies rash Neurological: Reports weakness Psychiatric: Denies anxiety, Denies depression Endocrine: Reports fatigue, Reports high blood sugars Hematologic/Lymphatic: Reports as per HPI Past Medical History Past Medical History: Atrial Fibrillation, Cancer, COPD, Diabetes Mellitus, Eye Disorder, Hyperlipidemia, Hypertension, Rheumatoid Arthritis (RA), Skin Disorder Additional Past Medical History / Comment(s): psoriasis, investigating lung cancer bone lesion October 2019 History of Any Multi-Drug Resistant Organisms: None Reported Past Surgical History: Joint Replacement Additional Past Surgical History / Comment(s): bilc cataracts, rt hip replacement, partial left knee replacement, total left knee replacement, Past Anesthesia/Blood Transfusion Reactions: No Reported Reaction Past Psychological History: No Psychological Hx Reported Smoking Status: Former smoker Past Alcohol Use History: None Reported Past Drug Use History: None Reported - Past Family History Father Family Medical History: Cancer Additional Family Medical History / Comment(s): pancreatic Medications and Allergies Home Medications Medication Instructions Recorded Confirmed Type Ascorbic Acid [Vitamin C] 500 mg PO DAILY 02/27/16 02/21/20 History Fluticasone/Vilanterol [Breo 1 puff INHALATION RT-DAILY 02/27/16 02/21/20 Histo ry Ellipta 200-25 Mcg INH] Hydrocodone/Acetaminophen [[place] 1 tab PO Q4H PRN 02/27/16 02/21/20 History 7.5-325] Ipratropium-Albuterol Nebulize 3 ml INHALATION RT-QID 02/27/16 02/21/20 History [Duoneb 0.5 mg-3 mg/3 ml Soln] Ipratropium/Albuterol Sulfate 2 puff INHALATION RT-BID 02/27/16 02/21/20 History [Combivent Respimat Inhaler] Lutein 20 mg PO DAILY 02/27/16 02/21/20 History Metoprolol Succinate [Toprol XL] 50 mg PO DAILY 02/27/16 02/21/20 History Rivaroxaban [Xarelto] 20 mg PO W/SUPPER 02/27/16 02/21/20 History Rosuvastatin Calcium [Crestor] 5 mg PO DAILY 02/27/16 02/21/20 History dilTIAZem HCL [Diltiazem HCl] 60 mg PO TID 02/27/16 02/21/20 History hydrALAZINE HCL 25 mg PO DAILY 02/27/16 02/21/20 History Docusate [Colace] 100 mg PO BID 02/21/20 02/21/20 History Flecainide [Tambocor] 50 mg PO Q12HR 02/21/20 02/21/20 History Latanoprost [Xalatan 0.005%] 1 drop BOTH EYES HS 02/21/20 02/21/20 History Repaglinide [Prandin] 1 mg PO BID 02/21/20 02/21/20 History Ubidecarenone [Co Q-10] 200 mg PO DAILY 02/21/20 02/21/20 History predniSONE See Taper PO DAILY 02/21/20 02/21/20 History Allergies Allergy/AdvReac Type Severity Reaction Status Date / Time cephalexin [From Keflex] Allergy Rash/Hives,itching,rapid Verified 02/21/20 07:30 heartbeat levofloxacin [From Levaquin] Allergy Rash/Hives,itching,rapid Verified 02/21/20 07:30 heartbeat moxifloxacin [From Avelox] Allergy Rash/Hives,itching,rapid Verified 02/21/20 07:30 heartbeat naproxen [From Aleve] Allergy Rash/Hives,itching,rapid Verified 02/21/20 07:30 heartbeat Physical Exam Vitals: Vital Signs Temp Pulse Pulse Resp BP BP Pulse Ox 02/22/20 12:35 96 02/22/20 12:30 85 L 02/22/20 12:15 80 32 H 141/65 97 02/22/20 08:20 98.3 F 107 H 30 H 124/59 94 L 02/22/20 04:00 86 24 137/62 92 L 02/22/20 00:00 73 21 136/62 91 L 02/21/20 20:00 98.9 F 73 22 138/65 91 L 02/21/20 16:00 22 02/21/20 15:55 98.1 F 72 22 128/64 92 L 02/21/20 14:39 64 24 101/63 93 L 02/21/20 14:12 54 L 24 107/66 96 02/21/20 13:54 96.6 F L 61 24 100/67 91 L 02/21/20 13:35 56 L 24 97/55 89 L 02/21/20 13:27 66 24 100/61 90 L 02/21/20 13:24 60 20 100/61 89 L Intake and Output 02/21/20 02/22/20 02/22/20 22:59 06:59 14:59 Intake Total 125 Output Total 150 Balance -25 Intake: Oral 125 Output: Urine 150 Other: Voiding Method Bedpan Bedpan # Voids 1 Weight 77.111 kg 86.5 kg - Constitutional General appearance: mild distress - EENT Eyes: EOMI, PERRLA ENT: hearing grossly normal, normal oropharynx - Neck Neck: no lymphadenopathy - Respiratory Respiratory: bilateral: rales - Cardiovascular Rhythm: regular Heart sounds: normal: S1, S2 - Gastrointestinal General gastrointestinal: normal bowel sounds, soft - Integumentary Integumentary: normal - Neurologic Neurologic: CNII-XII intact - Musculoskeletal Musculoskeletal: generalized weakness, strength equal bilaterally - Psychiatric Psychiatric: A&O x's 3, appropriate affect Results CBC & Chem 7: 02/21/20 05:07 02/21/20 05:07 Labs: Abnormal Lab Results - Last 24 Hours (Table) 02/21/20 02/22/20 02/22/20 Range/Units 21:10 06:06 12:04 POC Glucose (mg/dL) 261 H 211 H 236 H (75-99) mg/dL Microbiology - Last 24 Hours (Table) 02/21/20 05:07 Blood Culture - Preliminary Blood No Growth after 24 hours Comments: EKG image reviewed Chest x-ray: report reviewed Assessment and Plan (1) Multifocal pneumonia Narrative/Plan: The patient is being admitted with acute respiratory failure, with chest x-ray showing multifocal pneumonia. At this time differentials include infectious etiologies, including coronavirus, as well as pneumonitis related immunotherapy. - The patient has baseline COPD and lung fibrosis. 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 She has not had any immunotherapy since 01/27/20. She has also received steroids for her colitis. Therefore immunotherapy related pneumonitis is felt to be less likely, and an infectious cause more likely. - In any case, the patient is on steroids, which would treat immunotherapy related pneumonitis. Defer to the admitting service and other consultants for workup for other causes of pneumonitis, including coronavirus. Current Visit: Yes Status: Acute Code(s): J18.9 - PNEUMONIA, UNSPECIFIED ORGANISM SNOMED Code(s): 772552801 (2) Lung cancer Narrative/Plan: Treatment is currently on hold. She'll be reevaluated after resolution of the acute situation. The patient has previously declined chemotherapy. Therefore, treatment options may be limited, as it is possible that she had developed immunotherapy related side effects. Current Visit: Yes Status: Acute Code(s): C34.90 - MALIGNANT NEOPLASM OF UNSP PART OF UNSP BRONCHUS OR LUNG SNOMED Code(s): 484513197 (3) Leukocytosis Narrative/Plan: This is neutrophilic in nature. This is most likely reactive due to the patient being placed on steroids starting 02/09/20, followed by her current acute illness. Current Visit: Yes Status: Acute Code(s): D72.829 - ELEVATED WHITE BLOOD CELL COUNT, UNSPECIFIED SNOMED Code(s): 233857294
[2020-02-22] MEDS: RIVAROXABAN 20 MG TAB PO SCH (17:21)
--- NOTE | 2020-02-22 17:45 | P.PN ---
Subjective Progress Note Date: 02/22/20 This is a very pleasant 79-year-old female patient who follows with Dr. Swanson as her primary care provider. She has a history of atrial fibrillation, chronic obstructive pulmonary disease, diabetes mellitus, hyperlipidemia, hypertension, rheumatoid arthritis. She also has a history of lung cancer and follows in our office with Dr. Gallagher. She is known to have a right lung cancer. Initial navigational bronchoscopies were negative. Initial PET scans were negative. Follow-up PET scan in February 2017 did reveal considerable increase in size in one of the lesions and a mild increase in the other lesions with significant uptake. He did receive radiotherapy at that time. She follows with Dr. Cid. 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 She had been receiving immunotherapy but stopped it a few weeks ago based on how was making her feel. She presented here to the emergency past 20 5:00 this morning with complaints of increasing shortness of breath, fever chills body aches and nausea. She states she had been with her sister who had been exposed to CoVID 19. She is seen this morning in the emergency room. She is awake and alert. She is quite dyspneic even on conversation. She was initially on BiPAP 12/6 and 60% FiO2 to maintain O2 saturations in the 90s. Her BiPAP is currently off she is on 15 L nonrebreather mask. Chest x-ray reveals airspace opacity within the right mid and lower lung mo and to a lesser extent the left lower lung field suspicious for infiltrate. Her Covid screen is pending. Her temperature is 101.6. She is tachycardic. Tachypneic. White count 19.5. Hemoglobin 12.8. Lymphocytes 0.7. D-dimer 0.62. Sodium 125. Potassium 4.4. Creatinine 0.55. LDH 638. C-reactive protein 255. Influenza screen negative. She has received Zosyn, Zofran, acetaminophen. She's been initiated on Lovenox, Decadron, and azithromycin. On today's evaluation of 02/22/2020, the patient is still doing poorly. The patient remains on on BiPAP at a pressure of 12/6 cm of water with an FiO2 of 90%. The patient has metastatic cancer consistent with carcinosarcoma and the patient was receiving immunotherapy on outpatient basis and unfortunately she was unable to tolerate. Her last CAT scan of the chest was done in September 2019. For now, we are still awaiting this patient's Covid 19 status knowing that the patient's chest x-ray showing airspace opacity within the right midlung in the lower lungs bilaterally right more than left. There is also areas of consolidation that were present on previous CAT scan of the chest and there are large pulmonary nodules and I think the picture is consistent with a combination of pneumonia and metastatic disease. Meanwhile, the patient remains on empiric antibiotic coverage with Zithromax and Zosyn. The patient is on IV Solu Medrol 60 mg every 6 hours. The patient is EKTA inhibitor HFA 4 times a day [id number] and the patient is on long-term anticoagulants with Eliquis. As for the immunotherapy, the patient has not the treatment as the patient was having increased GI side effects. This was made in the form of diarrhea. This was thought to be related to immunotherapy related colitis. The treatment was discontinued and the patient was started on steroids on outpatient basis. Objective - Vital Signs Vital signs: Vital Signs Temp 98.4 F 02/22/20 15:20 Pulse 100 02/22/20 15:20 Resp 24 02/22/20 15:20 BP 168/79 02/22/20 15:20 Pulse Ox 98 02/22/20 15:20 Intake & Output 02/21/20 02/22/20 02/22/20 18:59 06:59 18:59 Intake Total 125 350 Output Total 150 400 Balance 125 -150 -50 Weight 77.111 kg 86.5 kg Intake: Intake, IV Titration 350 Amount Azithromycin 500 mg In 250 Sodium Chloride 0.9% 250 ml @ 250 mls/hr IVPB DAILY [facility] Rx#:[id number] Piperacillin-Tazobactam 3 100 .375 gm In Sodium Chloride 0.9% 100 ml @ 25 mls/hr IVPB Q8HR [facility] Rx# :[id number] Oral 125 Output: Urine 150 400 Other: Voiding Method Bedpan Bedpan # Voids 2 1 - Exam GENERAL EXAM: Alert, very pleasant 79-year-old female patient, on BiPAP for now for rest or support HEAD: Normocephalic. EYES: Normal reaction of pupils, equal size. NOSE: Clear with pink turbinates. THROAT: No erythema or exudates. NECK: No masses, no JVD. CHEST: No chest wall deformity. LUNGS: Equal air entry with bilateral scattered rhonchi CVS: S1 and S2 normal with no audible murmur, regular rhythm. ABDOMEN: No hepatosplenomegaly, normal bowel sounds, no guarding or rigidity. SPINE: No scoliosis or deformity SKIN: No rashes CENTRAL NERVOUS SYSTEM: No focal deficits, tone is normal in all 4 extremities. EXTREMITIES: There is no peripheral edema. No clubbing, no cyanosis. Peripheral pulses are intact. - Labs CBC & Chem 7: 02/21/20 05:07 02/21/20 05:07 Labs: Abnormal Lab Results - Last 24 Hours (Table) 02/21/20 02/21/20 02/22/20 Range/Units 05:07 21:10 06:06 D-Dimer (<0.60) mg/L FEU POC Glucose (mg/dL) 261 H 211 H (75-99) mg/dL Hemoglobin A1c 8.6 H (4.0-6.0) % C-Reactive Protein (<10.0) mg/L 02/22/20 02/22/20 02/22/20 Range/Units 12:04 12:57 12:57 D-Dimer 1.30 H (<0.60) mg/L FEU POC Glucose (mg/dL) 236 H (75-99) mg/dL Hemoglobin A1c (4.0-6.0) % C-Reactive Protein 558.8 H (<10.0) mg/L Microbiology - Last 24 Hours (Table) 02/21/20 05:07 Blood Culture - Preliminary Blood No Growth after 24 hours Assessment and Plan Plan: 1 Acute hypoxic respiratory failure secondary to bilateral patchy infiltrate, as the patient has metastatic carcinosarcoma of the lungs and possibly a superinfection with CoVID 19 and the results are still pending for now. The patient is BiPAP dependent and currently is on BiPAP for respiratory support. A CAT scan of the chest is to follow to assess disease progression malignancy progression once the Covid 19 testing is available. 2 Febrile illness secondary to above 3 Elevated inflammatory markers suspect Covid 19 infection 4 History of carcinosarcoma on biopsy of a left apical chest wall mass in October 2019 currently on immunotherapy and treatment as been placed on hold because of immunotherapy induced colitis with secondary diarrhea. 5 History of lung cancer with previous radiation therapy 6 Atrial fibrillation anticoagulated with Xarelto, currently in sinus rhythm 7 Hyperlipidemia 8 Hypertension 9 Rheumatoid arthritis 10 Diabetes mellitus 11 Prior tobacco dependence Plan Awaiting the Covid 19 screening regarding the possibility of a molina viral infection Continue BiPAP for respiratory support Continue broad-spectrum antibiotic coverage Continue IV Solu-Medrol We will obviously need a follow-up CAT scan of the chest to assess disease progression in terms of her malignancy as the patient is currently off immunotherapy for the obvious reasons mentioned above. CAT scan of the chest will be done once the Covid 19 status is established.
--- NOTE | 2020-02-22 19:55 | P.PN ---
Progress Note - Text Progress Note Date: 02/22/20 Chief Complaint: shortness of breath History of presenting complaint: This is a pleasant 79 [address] Mle Swanson. Chronic stable medical conditions include atrial fibrillation, COPD, diabetes, hyperlipidemia, hypertension, rheumatoid arthritis, psoriatic. Patient has a diagnosis of lung cancer metastatic [address] Mack. Patient had declined chemotherapy. Patient's currently on Kaytruda. Did receive radiation treatment. Patient lives alone. She is on home oxygen 3 L. Patient now presents with fever for one day. Increase shortness of breath. Wheezing. Patient is a smoker. Patient denies being exposed to any COVID person. Decreased appetite. Slight cough. Admitted with bilateral pneumonia with sepsis, acute hypoxic respiratory failure requiring BiPAP, COPD exacerbation. Patient started on bronchodilators, azithromycin, IV Zosyn steroids. Today-patient laying in bed. Short of breath. Wheezing. Uncomfortable at rest. Using BiPAP. COVID 19 results pending.. Review of systems: Was done for constitutional, cardiovascular, GI, pulmonary. relevant finding as above Active Medications Acetaminophen (Acetaminophen Tab 325 Mg Tab) 650 mg PO Q6HR PRN PRN Reason: Mild Pain or Fever > 100.5 Last Admin: 02/21/20 16:05 Dose: 650 mg Documented by: Hydrocodone Bitart/Acetaminophen (Hydrocodone/Apap 7.5-325mg 1 Each Tab) 1 each PO Q4H PRN PRN Reason: Pain Last Admin: 02/22/20 06:33 Dose: 1 each Documented by: Albuterol Sulfate (Albuterol Hfa Inhaler) 2 puff INHALATION RT-QID PRN PRN Reason: Shortness Of Breath Or Wheezing Last Admin: 02/21/20 13:01 Dose: 2 puff Documented by: Ascorbic Acid (Ascorbic Acid 500 Mg Tab) 500 mg PO DAILY [facility] Last Admin: 02/22/20 08:34 Dose: 500 mg Documented by: Atorvastatin Calcium (Atorvastatin 10 Mg Tab) 10 mg PO DAILY [facility] Last Admin: 02/22/20 08:33 Dose: 10 mg Documented by: Budesonide/Formoterol Fumarate (Symbicort 160-4.5 Mcg Inhaler) 2 puff INHALATION RT-BID [facility] Last Admin: 02/22/20 09:28 Dose: Not Given Documented by: Cholecalciferol (Cholecalciferol 1,000 Unit Tab) 1,000 unit PO DAILY [facility] Last Admin: 02/22/20 08:33 Dose: 1,000 unit Documented by: Diltiazem HCl (Diltiazem Oral 60 Mg Tab) 60 mg PO TID [facility] Last Admin: 02/22/20 17:21 Dose: 60 mg Documented by: Docusate Sodium (Docusate 100 Mg Cap) 100 mg PO BID [facility] Last Admin: 02/22/20 08:33 Dose: 100 mg Documented by: Famotidine (Famotidine 20 Mg Tab) 20 mg PO BID [facility] Last Admin: 02/22/20 08:33 Dose: 20 mg Documented by: Flecainide Acetate (Flecainide 50 Mg Tab) 50 mg PO Q12HR [facility] Last Admin: 02/22/20 08:33 Dose: 50 mg Documented by: Hydralazine HCl (Hydralazine Hcl 25 Mg Tab) 25 mg PO DAILY [facility] Last Admin: 02/22/20 08:33 Dose: 25 mg Documented by: Azithromycin 500 mg/ Sodium (Chloride) 250 mls @ 250 mls/hr IVPB DAILY [facility] Stop: 02/26/20 09:01 Last Admin: 02/22/20 08:32 Dose: 250 mls/hr Documented by: Piperacillin Sod/Tazobactam (Sod 3.375 gm/ Sodium Chloride) 100 mls @ 25 mls/hr IVPB Q8HR [facility] Last Admin: 02/22/20 17:21 Dose: 25 mls/hr Documented by: Insulin Aspart (Insulin Aspart (Novolog) 100 Unit/Ml Vial) 0 unit SQ ACHS [facility]; Protocol Last Admin: 02/22/20 17:20 Dose: Not Given Documented by: Latanoprost (Latanoprost 0.005% Ophth Drops 2.5 Ml Btl) 1 drops BOTH EYES [facility] Last Admin: 02/21/20 22:45 Dose: Not Given Documented by: Melatonin (Melatonin 5 Mg Tablet) 5 mg PO HS [facility] Last Admin: 02/21/20 22:37 Dose: 5 mg Documented by: Methylprednisolone Sodium Succinate (Methylprednisolone Sod Succi 125 Mg/2 Ml Vial) 60 mg IV Q6HR [facility] Last Admin: 02/22/20 17:20 Dose: 60 mg Documented by: Metoprolol Succinate (Metoprolol Succinate (Er) 50 Mg Tab.Er.24h) 50 mg PO DAILY [facility] Last Admin: 02/22/20 08:33 Dose: 50 mg Documented by: Miscellaneous Information (Pneumonia Protocol Utilized 1 Each Misc) 1 each PO ONCE PRN PRN Reason: Per Protocol Miscellaneous Information (Rx Info: Iv Contrast Was Given 1 Each Misc) 1 each MISCELLANE DAILY PRN PRN Reason: Per Protocol Stop: 02/24/20 11:25 Naloxone HCl (Naloxone 0.4 Mg/Ml 1 Ml Vial) 0.2 mg IV Q2M PRN PRN Reason: Opioid Reversal Ondansetron HCl (Ondansetron 4 Mg/2 Ml Vial) 4 mg IVP Q8HR PRN PRN Reason: Nausea And Vomiting Last Admin: 02/21/20 09:04 Dose: 4 mg Documented by: Repaglinide (Repaglinide 1 Mg Tab) 1 mg PO AC-BID [facility] Last Admin: 02/22/20 17:23 Dose: 1 mg Documented by: Rivaroxaban (Rivaroxaban 20 Mg Tab) 20 mg PO W/SUPPER [facility] Last Admin: 02/22/20 17:21 Dose: 20 mg Documented by: Zinc Sulfate (Zinc Sulfate 220 Mg Cap) 220 mg PO DAILY [facility] Last Admin: 02/22/20 08:34 Dose: 220 mg Documented by: Physical examination: VITAL SIGNS: 98.3, 107, 30, 120/59, 94% on BiPAP GENERAL: Laying in bed, using BiPAP, short of breath EYES: Pupils equal. Conjunctiva normal. PSYCH: Alert and oriented x3; mood and affect anxious. Additional examination as per pulmonary INVESTIGATIONS, reviewed in the clinical context: CRP 558, d-dimer 1.30 Previous testing White count 19.5 hemoglobin 12.8 platelets 448 increased neutrophils, decreased lymphocytes sodium 125 potassium 4.4 creatinine 0.55 CRP 255.1 progression calcitonin 0.12 Influenza type A type B both negative EKG tracing personally reviewed by me-sinus rhythm, poor baseline Chest x-ray film personally reviewed by me-scattered infiltrates. Large pulmonary nodules reported. Assessment: -Bilateral pneumonia, suspect gram-negative orgasm, rule out COVID 19, POA-slow to respond -Sepsis secondary to pneumonia -Acute hypoxic respiratory failure on BiPAP-slow to respond -Paroxysmal atrial fibrillation currently in sinus rhythm, chronically on Xarel to -Lung cancer with bony metastatic this, status post radiation treatment. Patient is on Kaytruda. Has declined chemotherapy. -Acute COPD exacerbation in an ex-smoker, POA-slow to respond -Diabetes mellitus type 2 -Hyperlipidemia -Essential hypertension -Rheumatoid arthritis -Psoriasis Plan: COVID 19 PCR is pending. On IV ceftriaxone and Zithromax. on IV Solu-Medrol. bronchodilators. Using a BiPAP. Discussed with patient
[2020-02-22] MEDS: MELATONIN 5 MG TABLET PO SCH (20:26)
[2020-02-22] MEDS: LATANOPROST 0.005% OPHTH DROPS 2.5 ML BTL BOTH EYES SCH (20:28)
[2020-02-22 20:47] VITALS: BP 186/88; PULSE 133; RESP 36; TEMP 98.9
[2020-02-22 21:07] LABS: Glucose,Whole Blood 307 mg/dL (75-99)
--- NOTE | 2020-02-22 21:44 | PN ---
PROGRESS NOTE DATE OF SERVICE: 02/22/2020 REASON FOR FOLLOWUP: Fever and pneumonia. INTERVAL HISTORY: Patient overall fever pattern has improved. No fever has been recorded today. The patient continues to have respiratory distress and is BiPAP dependent. She is hemodynamically stable, not requiring pressor support. No vomiting, diarrhea or any other changes reported by nursing staff. PHYSICAL EXAMINATION: Blood pressure 186/88 with a pulse of 133, temperature 98.9. She is 90% on BiPAP. General description is an elderly female lying in bed in no distress. Respiratory system: Unlabored breathing with decreased breath sounds in the bases. No wheeze. Heart S1, S2. Regular rate and rhythm. Abdomen soft, no tenderness. LABS: D-dimer is 1.30. CRP 558, slightly worse than yesterday. Influenza PCR was negative. Ceron PCR is pending. DIAGNOSTIC IMPRESSION AND PLAN: Patient admitted to the hospital with difficulty breathing and did have a fever with concern for possible COVID-19 infection versus bacterial pneumonia. Covid-19 testing is still pending. The patient is currently covered with Zosyn and Zithromax, steroids to continue while monitoring clinical course closely. Continue supportive care. MMODL / IJN: [id number] /
[2020-02-22] MEDS ORDERED: FUROSEMIDE 10 MG/ML 4 ML VIAL ONE (22:00)
[2020-02-22] MEDS ORDERED: FUROSEMIDE 10 MG/ML 4 ML VIAL IV STA (22:01)
[2020-02-22] MEDS ORDERED: LORazepam 2 MG/ML INJ IV PRN (22:36)
[2020-02-22] MEDS ORDERED: ATROPINE OPHTH SOLN 1% 5ML BTL SUBLINGUAL PRN (22:36)
[2020-02-22] MEDS ORDERED: MORPHINE SULFATE 4 MG/ML SYRINGE IVP ONE (22:36)
[2020-02-22] MEDS ORDERED: GLYCOPYRROLATE 0.2 MG/ML 2 ML VIAL IVP PRN (22:36)
--- NOTE | 2020-02-22 22:40 | XR ---
EXAMINATION TYPE: XR chest 1V portable DATE OF EXAM: 02/22/2020 COMPARISON: 02/21/2020 yesterday HISTORY: Short of breath TECHNIQUE: FINDINGS: There is patchy bilateral interstitial and airspace consolidation. Pulmonary vascularity is difficult to evaluate because of the lung disease. There are chest leads. Costophrenic angles are fa irly clear. IMPRESSION: Extensive pulmonary infiltrates consistent with acute pneumonia superimposed on pulmonary fibrosis. No obvious heart failure. Pneumonia slightly worse than yesterday.
[2020-02-22] MEDS ORDERED: SCOPOLAMINE 1.5MG/72HR PATCH TRANSDERM SCH (22:45)
[2020-02-22] MEDS ORDERED: MORPHINE SULFATE (100 MG/2 ML) 100 MG in SODIUM CHLORIDE 0.9% 100 ML IV SCH (22:45)
--- NOTE | 2020-02-23 23:15 | P.DS ---
Providers Date of admission: 02/21/20 06:29 Expected date of discharge: 02/23/20 Attending physician: Keaton Sanchez Consults: 02/21/20 06:36 Consult Physician Urgent Consulting Provider: Lynne Parker Consult Reason/Comments: pneumonia with multiple drug allergies Do you want consulting provider notified?: Yes, Notify in am 02/21/20 13:30 Consult Physician Routine Consulting Provider: Uvaldo Gallagher Consult Reason/Comments: sob Do you want consulting provider notified?: Yes 02/21/20 13:31 Consult Physician Routine Consulting Provider: Black Cid Consult Reason/Comments: lung cancer Do you want consulting provider notified?: Yes Primary care physician: Angela Swanson [facility] Course: Chief Complaint: shortness of breath History of presenting complaint: This is a pleasant [address] Mel Swanson. Chronic stable medical conditions include atrial fibrillation, COPD, diabetes, hyperlipidemia, hypertension, rheumatoid arthritis, psoriatic. Patient has a diagnosis of lung cancer metastatic [address] Mack. Patient had declined chemotherapy. Patient's currently on Kaytruda. Did receive radiation treatment. Patient li ves alone. She is on home oxygen 3 L. Patient now presents with fever for one day. Increase shortness of breath. Wheezing. Patient is a smoker. Patient denies being exposed to any COVID person. Decreased appetite. Slight cough. Admitted with bilateral pneumonia with sepsis, acute hypoxic respiratory failure requiring BiPAP, COPD exacerbation. Patient started on bronchodilators, azithromycin, IV Zosyn steroids. -respiratory status continued to remain poor. Requiring BiPAP.-Oxygen. Late in the day became much more severe. Family decided to make the patient comfort care. Hospice was called for GIP care.. COVID 19 results pending Physical examination: VITAL SIGNS: 98.3, 107, 30, 120/59, 94% on BiPAP GENERAL: Laying in bed, using BiPAP, short of breath EYES: Pupils equal. Conjunctiva normal. PSYCH: Alert and oriented x3; mood and affect anxious. Additional examination as per pulmonary INVESTIGATIONS, reviewed in the clinical context: CRP 558, d-dimer 1.30 Previous testing White count 19.5 hemoglobin 12.8 platelets 448 increased neutrophils, decreased lymphocytes sodium 125 potassium 4.4 creatinine 0.55 CRP 255.1 progression calcitonin 0.12 Influenza type A type B both negative EKG tracing personally reviewed by me-sinus rhythm, poor baseline Chest x-ray film personally reviewed by me-scattered infiltrates. Large pulmonary nodules reported. Assessment: -Bilateral pneumonia, suspect gram-negative orgasm, rule out COVID 19, POA-slow to respond -Sepsis secondary to pneumonia -Acute hypoxic respiratory failure on BiPAP-slow to respond -Paroxysmal atrial fibrillation currently in sinus rhythm, chronically on Xarelto -Lung cancer with bony metastatic this, status post radiation treatment. Patient is on Kaytruda. Has declined chemotherapy. -Acute COPD exacerbation in an ex-smoker, POA-slow to respond -Diabetes mellitus type 2 -Hyperlipidemia -Essential hypertension -Rheumatoid arthritis -Psoriasis -No code/Comfort Care Disposition: GIP/hospice Patient Condition at Discharge: Poor Plan - Discharge Summary Discharge Rx Participant: No Follow up Appointment(s)/Referral(s): Angela Swanson MD [Primary Care Provider] - 1-2 days Discharge Disposition: DISCH TO HOSPICE MED FACILTY
--- NOTE | 2020-02-24 21:28 | CDI ---
Documentation Clarification Form Date: 02/25/2020 From: Kristofer Kathleen Phone: If you have a question about this query, please contact Jennifer Holliday Platform Architect at [phone] between 8am and 5pm. Admit Date: 02/21/2020 Discharge Date: 02/23/2020 Patient Name: Tia Ibarra Visit Number: [id number] ATTENTION: The Clinical Documentation Specialists (CDI) and [facility] Coding Staff appreciate your assistance in clarifying documentation. Please respond to the clarification below the line at the bottom and electronically sign. The CDI & [facility] Coding staff will review the response and follow-up if needed. Please note: Queries are made part of the Legal Health Record. If you have any questions, please contact the author of this message via ITS. Dear Dr Daniel Pugh MD., Admitted with bilateral pneumonia with sepsis, acute hypoxic respiratory failure requiring BiPAP, COPD exacerbation Patient history/risk factors: COPD, Acute respiratory failure, gram negative PNA, Lung cancer CXR:Extensive pulmonary infiltrates consistent with acute pneumonia superimposed on pulmonary fibrosis.No obvious heart failure.Pneumonia slightly worse than yesterday. Viral Panel: COVID 19 results pending Vital Signs: 02/21/20 09:50 114 H 25 H 123/70 92 L Treatment:Patient started on bronchodilators, azithromycin, IV Zosyn steroids. DS stated as"Bilateral pneumonia, suspect gram-negative orgasm, rule out COVID 19, POA-slow to respond". In order to capture the severity of condition, please clarify if the above treatment/clinical indicators signify: COVID-19 ruled out COVID-19 confirmed Covid - false negative Other, please specify Unable to determine COVID-19 pneumonia Coumadin, POA MTDD
== END 2020-02-23 00:21 | disposition expired | DRG 871 ==
LOC: EC 04:14 → 3SCARD 06:29
PROVIDERS: ADMIT Hospitalist; ATTEND Hospitalist
DX: A41.59 Other Gram-negative sepsis (principal); J15.6 Pneumonia due to other Gram-negative bacteria; J96.01 Acute respiratory failure with hypoxia; U07.1 COVID-19; J44.1 Chronic obstructive pulmonary disease with (acute) exacerbation; J44.0 Chronic obstructive pulmonary disease with (acute) lower respiratory infection; C34.91 Malignant neoplasm of unspecified part of right bronchus or lung; C79.51 Secondary malignant neoplasm of bone; I48.0 Paroxysmal atrial fibrillation; I10 Essential (primary) hypertension; Z51.5 Encounter for palliative care; Z66 Do not resuscitate; E78.5 Hyperlipidemia, unspecified; F17.200 Nicotine dependence, unspecified, uncomplicated; M06.9 Rheumatoid arthritis, unspecified; E11.9 Type 2 diabetes mellitus without complications; L40.9 Psoriasis, unspecified; Z96.652 Presence of left artificial knee joint; Z96.641 Presence of right artificial hip joint; K52.9 Noninfective gastroenteritis and colitis, unspecified; J84.10 Pulmonary fibrosis, unspecified; Z99.81 Dependence on supplemental oxygen; Z92.3 Personal history of irradiation; Z79.899 Other long term (current) drug therapy; Z79.01 Long term (current) use of anticoagulants; Z88.1 Allergy status to other antibiotic agents; Z88.8 Allergy status to other drugs, medicaments and biological substances; Z98.42 Cataract extraction status, left eye; Z98.41 Cataract extraction status, right eye; Z80.0 Family history of malignant neoplasm of digestive organs
CPT/HCPCS: 36415; 71045; 80053; 82728; 83036; 83605; 83615; 83735; 84145; 85025; 85379; 85610; 85730; 86140; 87040; 87502; 93005; 94640; 94660; 96372; 96374; 96375; 96376; 99285

== ENCOUNTER 2020-02-23 00:19 | Inpatient (IN) | payer MEDICAID ==
[2020-02-23] MEDS ORDERED: ATROPINE OPHTH SOLN 1% 5ML BTL SUBLINGUAL PRN (00:26)
[2020-02-23] MEDS ORDERED: MORPHINE SULFATE 4 MG/ML SYRINGE IVP ONE (00:26)
[2020-02-23] MEDS ORDERED: MORPHINE SULFATE 2 MG/ML SYRINGE IV PRN (00:26)
[2020-02-23] MEDS ORDERED: MORPHINE SULFATE (100 MG/2 ML) 100 MG in SODIUM CHLORIDE 0.9% 100 ML IV SCH (00:30)
[2020-02-23] MEDS: LORazepam 2 MG/ML INJ IV PRN ×2 (00:51→03:14)
--- NOTE | 2020-02-23 23:17 | P.DS ---
Providers Date of admission: 02/23/20 00:23 Expected date of discharge: 02/23/20 Attending physician: Keaton Sanchez Primary care physician: Angela Swanson [facility] Course: Patient admitted to [facility] for comfort care measures for terminal illness. Comfort Care set was used. Patient succumbed to underlying conditions. This was done under hospice care Cause of : Pneumonia Plan - Discharge Summary New Discharge Prescriptions: Discontinued Hydrocodone/Acetaminophen [[place] 7.5-325] 1 tab PO Q4H PRN PRN Reason: Pain Ascorbic Acid [Vitamin C] 500 mg PO DAILY Lutein 20 mg PO DAILY dilTIAZem HCL [Diltiazem HCl] 60 mg PO TID Rivaroxaban [Xarelto] 20 mg PO W/SUPPER Rosuvastatin Calcium [Crestor] 5 mg PO DAILY hydrALAZINE HCL 25 mg PO DAILY Metoprolol Succinate [Toprol XL] 50 mg PO DAILY Ipratropium-Albuterol Nebulize [Duoneb 0.5 mg-3 mg/3 ml Soln] 3 ml INHALATION RT-QID Ipratropium/Albuterol Sulfate [Combivent Respimat Inhaler] 2 puff INHALATION RT-BID Fluticasone/Vilanterol [Breo Ellipta 200-25 Mcg INH] 1 puff INHALATION RT- DAILY predniSONE See Taper PO DAILY Latanoprost [Xalatan 0.005%] 1 drop BOTH EYES HS Docusate [Colace] 100 mg PO BID Ubidecarenone [Co Q-10] 200 mg PO DAILY Repaglinide [Prandin] 1 mg PO BID Flecainide [Tambocor] 50 mg PO Q12HR Discharge Disposition: - Preliminary Cause of Preliminary Cause of : Pneumonia
== END 2020-02-23 05:30 | disposition expired | DRG 951 ==
LOC: 3SCARD 00:23
PROVIDERS: ADMIT Hospitalist; ATTEND Hospitalist
DX: Z51.5 Encounter for palliative care (principal); J18.9 Pneumonia, unspecified organism; Z88.6 Allergy status to analgesic agent; Z88.1 Allergy status to other antibiotic agents